=== PATIENT | male | born 1960 | race Caucasian/White ===

== ENCOUNTER 2019-07-21 08:00 | Day surgery (SDC) | payer BC ==
[2019-07-17 10:08] LABS: Absolute Lymphocytes (CBC) 1.8 K/uL (0.7-4.9); Hematocrit 49.2 % (39.6-49.0); Lymphocytes % 21.4 % (15.3-44.8); MPV 10.1 fL (7.6-11.3); RBC Red Blood Cell Count 5.44 M/uL (4.33-5.43)
[2019-07-17 10:25] LABS: Potassium 3.9 mmol/L (3.5-5.1)
--- NOTE | 2019-07-17 10:31 | RAD REPORT ---
EXAM DESCRIPTION: Jose Platt (2 Views)07/17/2019 10:02 am CLINICAL HISTORY: Preop for hernia repair/hypertension COMPARISON: 2017 FINDINGS: The lungs appear clear of acute infiltrate. The heart is mildly enlarged IMPRESSION: No acute abnormalities displayed
[2019-07-21] MEDS ORDERED: NA CHLORIDE 0.9% 1,000 ML ONE (08:44)
[2019-07-21] MEDS ORDERED: MIDAZOLAM HCL 2 MG/2 ML INJ ONE (09:10)
[2019-07-21] MEDS: CEFAZOLIN/SWI 1gm 1 GM/10 ML SYR ONE ×2 (09:17→09:25)
[2019-07-21] MEDS ORDERED: EPHEDRINE SULF 50 MG/ML VIAL ONE (09:40)
[2019-07-21] MEDS ORDERED: LIDOCAINE 2% MPF 5 ML VIAL ONE (09:41)
[2019-07-21] MEDS ORDERED: Ringers Lactate 1,000 ML IV ONE (09:41)
[2019-07-21] MEDS ORDERED: ROCURONIUM 50 MG/5 ML VIAL IV ONE (09:41)
[2019-07-21] MEDS ORDERED: ONDANSETRON 4 MG/2 ML VIAL ONE ×2 (09:41→11:28)
[2019-07-21] MEDS ORDERED: propofoL 200 MG/20 ML VIAL IV ONE (09:41)
[2019-07-21] MEDS ORDERED: GLYCOPYRROLATE 0.2 MG/ML SYR ONE ×2 (09:41→10:31)
[2019-07-21] MEDS ORDERED: FENTANYL CITR 250 MCG/5 ML ONE (09:41)
[2019-07-21] MEDS ORDERED: dexAMETHasone 10 MG/ML VIAL ONE (09:41)
[2019-07-21] MEDS ORDERED: KETOROLAC 30 MG/ML INJ ONE (10:10)
[2019-07-21] MEDS ORDERED: NEOSTIGMINE 1 MG/ML -5 ML ONE (10:37)
[2019-07-21] MEDS: HYDROMORPHONE HCL 1 MG/ML INJ ONE ×6 (10:50→11:27)
[2019-07-21] MEDS: MORPHINE 4 MG/ML SYR ONE ×4 (11:32→11:49)
[2019-07-21] MEDS: MEPERIDINE HCL 50 MG/ML ONE ×2 (11:59→12:04)
[2019-07-21 12:19] VITALS: TEMP 97.6
[2019-07-21] MEDS ORDERED: HYDROCODONE/APAP 7.5/325 MG TAB ONE (12:52)
[2019-07-21 13:33] VITALS: O2SAT 100
[2019-07-21 13:34] VITALS: BP 146/68
--- NOTE | 2019-07-21 21:21 | OP ---
Date of Procedure: 07/21/2019 Surgeon: Ryan Curtis MD Assessment Clinician: ESTRELLA Mcclelland. Preoperative Diagnosis: Incarcerated ventral hernia and abdominal pain. Postoperative Diagnosis: Incarcerated ventral hernia and abdominal pain. Procedure: Diagnostic laparoscopy, lysis of adhesions, and repair of incarcerated ventral hernia. Estimated Blood Loss: Minimal. Specimens: Hernia sac. Findings: As above. Anesthesia: General. Complications: None. Patient tolerated the procedure in stable condition and was taken to recovery in good general conditi on. Procedure In Detail: Patient was brought to the OR and placed in supine position. General anesthesi a was begun. Patient was prepped and draped in the usual sterile fashion. Marcaine 0.5% was infiltr ated locally. A 15-blade was used to make a 1 cm left upper quadrant incision. Subcutaneous tissue was divided. Fascia identified and divided. #1 Vicryl stay suture was placed. Peritoneal cavity en tered with sharp and blunt dissection. 12 mm trocar was placed into the peritoneal cavity under dire ct vision. Pneumoperitoneum was established and then 5 mm trocar was placed in the left lower quadra nt. Laparoscopy revealed incarcerated omentum into a ventral hernia just above the umbilicus. We re duced the omentum and divided away from the hernia sac and then there was additional omental adhesion s to the peritoneal surface which were lysed with the LigaSure. Then a 3 cm curvilinear incision ove r the top part of the hernia was meticulously divided. Hernia sac was identified, excised, and sent to pathology as specimen. Approximately 2.5 cm defect remained. Then, a large Ventralex mesh placed in the peritoneal cavity and then #1 PDS used to close the fascial defect primarily and then pneumop eritoneum reestablished. Complete coverage of the hernia was accomplished with at least 3 cm more in all direction and tacker was used to tack the mesh to the peritoneal surface and then all the trocar s were removed under direct vision. There was no evidence of bleeding or bowel injury appreciated an d then the stay sutures were tied to each other to reapproximate the fascial defect. Subcutaneous wo unds were irrigated, bleeding controlled with cautery, 3-0 used to reapproximate subcutaneous tissue and close the skin. Sterile dressing was applied. Patient was awakened and taken to Recovery in goo d general condition. Discharge Note: Patient will go to Day Surgery and home when stable. Disposition: Home. Condition: Stable. Discharge Instructions: Resume home medications and diet. Activity as tolerated. No heavy lifting. Remove outer dressing in 2 days. Shower. Keep wound clean and dry. Follow up in my office in a demetri [place]. Call for appointment. Tylenol No.3 one tablet p.o. q.4 p.r.n. pain. Keep Steri-Strips on at a ll times. Incentive spirometry is ordered, abdominal binder is ordered. /MODL Voice ID: [id number] Report ID: [id number]
== END 2019-07-21 13:20 | disposition home or self-care (01) ==
LOC: OR 08:00
PROVIDERS: ATTEND Surgery
PROC: 0WQF4ZZ Repair Abdominal Wall, Percutaneous Endoscopic Approach (ICD-10-PCS; principal; 2019-07-21 09:00)
DX: K43.6 Other and unspecified ventral hernia with obstruction, without gangrene (principal); K43.9 Ventral hernia without obstruction or gangrene
CPT/HCPCS: 85025; 80048; 36415; 82947 ×2; 88302; 71046; 49655; J2704; J2250; J3010; J1100; J2175; J1170 ×3; J2710; J0690; J7120; J7030; J2405 ×2

== ENCOUNTER 2021-12-30 07:53 | Day surgery (SDC) | payer BC ==
[2021-12-30 08:17] LABS: Absolute Lymphocytes (CBC) 2.9 K/uL (0.7-4.9); Hematocrit 44.8 % (39.6-49.0); Lymphocytes % 28.8 % (15.3-44.8); MCV 89.4 fL (80-100); MPV 8.6 fL (7.6-11.3); RBC Red Blood Cell Count 5.01 M/uL (4.33-5.43)
[2021-12-30 08:42] LABS: Potassium 3.9 mmol/L (3.5-5.1)
--- NOTE | 2021-12-30 08:52 | RAD REPORT ---
EXAM DESCRIPTION: RAD - Chest Pa And Lat (2 Views) - 12/30/2021 8:20 am CLINICAL HISTORY: Pre op pending diagnostic laparoscopy COMPARISON: Two view chest 07/17/2019 TECHNIQUE: Frontal and lateral views of the chest were obtained. FINDINGS: The lungs are normal volume. Left lung field is clear. Right costophrenic angle blunting a nd patchy right lung base parenchymal stranding is present similar to the prior study. Heart size i s normal and central vasculature is within normal limits. No pleural effusion or pneumothorax seen. No acute bony finding noted. No aortic abnormality. IMPRESSION: Chronic right base pleural and parenchymal opacification. No acute cardiopulmonary finding.
[2021-12-30] MEDS: NA CHLORIDE 0.9% 1,000 ML ONE ×2 (09:00→09:19)
[2021-12-30] MEDS: CEFAZOLIN SODIUM 1 GM/VIAL ONE ×2 (09:17→10:05)
[2021-12-30] MEDS: BUPIVACAINE 0.5% PF 10 ML VIAL ONE ×2 (09:18→10:34)
[2021-12-30] MEDS ORDERED: propofoL 200 MG/20 ML VIAL IV ONE (09:21)
[2021-12-30] MEDS ORDERED: FENTANYL CITR 100 MCG/2 ML ONE ×2 (09:22→10:45)
[2021-12-30] MEDS ORDERED: MIDAZOLAM HCL 2 MG/2 ML INJ ONE ×2 (09:22→09:26)
[2021-12-30] MEDS ORDERED: LIDOCAINE 2% MPF 5 ML VIAL ONE (09:23)
[2021-12-30] MEDS ORDERED: ONDANSETRON 4 MG/2 ML VIAL ONE (09:26)
[2021-12-30] MEDS ORDERED: GLYCOPYRROLATE 0.2 MG/ML SYR ONE (09:27)
[2021-12-30] MEDS ORDERED: ROCURONIUM 50 MG/5 ML VIAL IV ONE (09:27)
[2021-12-30] MEDS ORDERED: NEOSTIGMINE 1 MG/ML -10 ML VIAL ONE (09:28)
[2021-12-30] MEDS ORDERED: Mastisol Adhesive Liq ONE ×2 (09:34→11:23)
[2021-12-30] MEDS ORDERED: SUCCINYLCHOLINE 20 MG/ML (10 ML) IV ONE (10:00)
[2021-12-30] MEDS ORDERED: HYDRALAZINE HCL 20 MG/ML VIAL ONE (10:49)
[2021-12-30] MEDS ORDERED: NA CHLORIDE 0.9% 1,000 ML ONE (11:20)
[2021-12-30] MEDS ORDERED: HYDROCODONE/APAP 7.5/325 MG TAB PO PRN (11:26)
--- NOTE | 2021-12-30 11:26 | P.OP ---
Date of Service: 12/30/21 Preop diagnosis: Chronic abdominal pain Postop diagnosis: Same with extensive adhesions Procedure performed: Diagnostic laparoscopy, lysis of adhesions Surgeon: Ryan Curtis MD [employer] Repairer: Silvia DE LA ROSA Estimated blood loss: Minimal Specimen: None Findings: As above Anesthesia: General Complications: None Drains: None Fluids and blood products: Nonapplicable Disposition: Recovery room Operative note: Patient brought to the OR placed in supine position. General anesthesia begun. Patient prepped and draped in usual sterile fashion. Marcaine 0.5% infiltrated locally. 15 blade used to make a 1 cm incision in the left middle quadrant. Subcu tissue divided and fascia identified and divided. #1 Vicryl stay suture placed. Peritoneal cavity entered with sharp and blunt dissection. 12 mm trocar placed into the peritoneal cavity under direct vision. Then a 5 Bravo trocar placed in the left upper quadrant under direct vision. Laparoscopy revealed extensive adhesions in the midline near the umbilicus and in the suprapubic region as well as the right upper quadrant and right middle quadrant. These were the sites of patient's previous surgery. LigaSure was used to lyse all of the omental adhesions. Care was care was taken to avoid injury to the bowel. Most of the adhesions were omental in nature. After extensive lysis of adhesion was performed, there was no evidence of bowel injury or bleeding noted. Then all trochars removed under direct vision. Stay sutures tied to each other to reapproximate the fascial defect. Subcutaneous wounds irrigated bleeding controlled with cautery. 3-0 chromic used to approximate subcutaneous tissue and close skin. Sterile dressing applied. Patient awakened and taken to recovery room in good general condition. CC: Dr. Barclay's and Dr. Flores's office
[2021-12-30] MEDS: HYDROMORPHONE HCL 1 MG/ML INJ ONE ×3 (11:59→12:06)
[2021-12-30] MEDS: HYDROMORPHONE HCL 2 MG/ML inj ONE ×6 (12:14→12:29)
[2021-12-30] MEDS ORDERED: HYDROCODONE/APAP 7.5/325 MG TAB ONE (13:22)
[2021-12-30 14:24] VITALS: BP 157/79; TEMP 96.9; O2SAT 99
--- NOTE | 2021-12-31 19:14 | EKG ---
Test Date: 2021-12-30 Test Time: 07:57:15 [employer]: ALLY MEASUREMENT RESULTS: Intervals: Rate: 65 NC: 208 QRSD: 114 QT: 434 QTc: 451 [place]: P: 21 NC: 208 QRS: -1 T: 86 INTERPRETIVE STATEMENTS: Normal sinus rhythm Inferior infarct, age undetermined Anterolateral infarct, age undetermined Abnormal ECG Compared to ECG 12/13/2016 03:18:45 First degree AV block no longer present Left ventricular hypertrophy no longer present Myocardial infarct finding still present Electronically Signed On 12-31-21 19:10:39 OPERATIONS RESEARCH ANALYST by Nehemiah Beck
== END 2021-12-30 14:20 | disposition home or self-care (01) ==
LOC: OR 07:53
PROVIDERS: ATTEND Surgery
PROC: 0DNU4ZZ Release Omentum, Percutaneous Endoscopic Approach (ICD-10-PCS; principal; 2021-12-30 10:00)
DX: R10.9 Unspecified abdominal pain (principal); K66.0 Peritoneal adhesions (postprocedural) (postinfection)
CPT/HCPCS: 93005; 85025; 80048; 36415; 82947; 71046; 49329; J0360; J2704; J2710; J0330; J2001; J2250; J1170 ×2; J3010 ×2; J7030 ×2; J2405; J0690